=== PATIENT | female | born 1970 | race Caucasian/White ===

== ENCOUNTER 2018-03-16 12:07 | Emergency (ER) | payer OTHER, SELFPAY ==
[2018-03-16 12:08] VITALS: BP 185/118; PULSE 72; RESP 18; TEMP 36.6; O2SAT 100; BMI 28.8
[2018-03-16 12:23] VITALS: BP 194/108; PULSE 88; RESP 16; O2SAT 98
--- NOTE | 2018-03-16 12:30 | EKG12_ITS ---
Test Reason : HYPERTENSION Blood Pressure : / mmHG Vent. Rate : 067 BPM Atrial Rate : 067 BPM P-R Int : 140 ms QRS Dur : 078 ms QT Int : 430 ms P-R-T Axes : 063 058 039 degrees QTc Int : 454 ms Normal sinus rhythm Normal ECG Confirmed by NAGI MONTOYA, PATRICE ([id number]), supervising editor trailer AKIL CORONADO ([id number] on 03/21/2018 1:36:02 PM Referred By: RONY Confirmed By:PATRICE LAZAR MD
[2018-03-16] MEDS: Lisinopril 10 MG Tablet PO (12:47)
[2018-03-16 12:51] VITALS: BP 198/131; PULSE 71; RESP 16; O2SAT 100
[2018-03-16 13:02] LABS: Absolute Lymphocyte Count 1.19 X10^3/ul (0.83-4.51); Absolute Neutrophil Count 3.5 X10^3/uL (2.0-7.7); Basophil# 0.01 X10^3/uL; Basophil% 0.2 % (0-1); Eosinophil# 0.07 X10^3/uL; Eosinophils% 1.4 % (0-5); Hematocrit 34.9 % (37-47); Hemoglobin 11.1 g/dl (12.0-15.0); Lymphocyte # 1.19 X10^3/ul (4.0); Mean Corp Hgb Conc 31.8 g/gl (32-36); Mean Corpuscular Hgb 21.3 pg (27.0-32.0); Mean Platelet Vol. 10.3 fl (6.2-12.0); Monocyte# 0.45 X10^3/uL; Monocyte% 8.7 % (0-10); Neutrophil # 3.45 X10^3/uL (2.7-7.7); Neutrophil % 66.5 % (47-70); Platelet Count 233 K/mm3 (150-450); RBC Distribution Width SD 41.5 fl (35.1-43.9); Red Blood Count 5.21 M/mm3 (4.2-5.4); White Blood Count 5.2 K/mm3 (4.4-11.0)
[2018-03-16 13:03] LABS: POSITIVE COUNT NO; POSITIVE DIFFERENTIAL NO; POSITIVE MORPHOLOGY NO
[2018-03-16 13:16] LABS: Anion Gap 5 (5-15); BUN 12 mg/dL (7-18); BUN/Creat Ratio 15.7 RATIO (10-20); Calcium,Total 8.6 mg/dL (8.5-10.1); Chloride 109 mmol/L (98-107); Creatinine, Serum 0.76 mg/dL (0.55-1.02); EST Glomerular Filtration Rate 87 mL/min (>60); Est Glom Filt Rate - Afr Amer 105 mL/min (>60); Estimated Creatinine Clearance 79.87 ml/min; Glucose 90 mg/dL (74-106); Potassium 3.5 mmol/L (3.5-5.1); Sodium Level 140 mmol/L (136-145)
--- NOTE | 2018-03-16 14:09 | ED.VISSUMM ---
- ER Visit Summary Date of Service: 03/16/18 Chief Complaint: [Hypertension] History of Present Illness: The patient is a 47 F [presents the emergency department with elevated blood pressure. Patient was seeing her [employer] today due to a polyp in her uterus that has been causing some irregular bleeding and it was noted that her blood pressure was elevated during the visit. Patient states that she is not been taking her lisinopril for the last 2 weeks which she normally takes for her blood pressure. Patient states that she is also had some seasonal allergy type symptoms and she has been taking Claritin but does not like the way she feels when she takes the Claritin with the lisinopril. Patient also has been using some Tylenol Sinus [id number] medication. Patient denies chest pain or shortness of breath. Patient denies headaches.] Physical Examination: [HEENT-PERRLA, EOMI. Cranial nerves II through XII grossly intact. TMs clear. Mucous membranes moist. No adenopathy. Cardiovascular-regular rate and rhythm without murmur or ectopy Lungs-clear to auscultation, chest wall stable without crepitus or subcu emphysema Abdomen-normoactive bowel sounds, soft, nontender, no rebound or rigidity, no peritoneal signs. Extremities-intact ?4, normal range of motion, normal pulses, atraumatic] Test Results: [EKG obtained on arrival showed sinus rhythm with a rate of 67 bpm. CBC with differential was normal. Chemistries unremarkable. Troponin was less than 0.015.] Emergency Department Course and Treatment: Patient received lisinopril 10 mg p.o. and she was observed in the emergency department. Her blood pressure improved into the 150s over low 100s. [] Treatment Plan: [P the patient is asymptomatic at this point I recommended that she go back on her lisinopril and keep a journal of her blood pressures over the next week. Patient to follow-up with her primary care physician to determine if any further adjustments need to be made in her blood pressure medication.] Disposition: [Discharged home in stable condition] Impression: Hypertension [] This note was generated with [employer] software. It may contain incorrect words, spelling, and punctuation that were not noted in review of the chart prior to signing ED Disposition - Plan for ED Patient: Chief Complaint: Hypertension Referrals: Hank Escobar MD [Primary Care Provider] -
--- NOTE | 2018-03-16 14:11 | ED.DEP ---
ED Disposition - Plan for ED Patient: Chief Complaint: Hypertension Instructions: ED HTN Established Referrals: Hank Escobar MD [Primary Care Provider] - 5-7 Days
[2018-03-16 14:28] VITALS: BP 153/105; PULSE 74; RESP 16; O2SAT 98
--- NOTE | 2018-03-16 14:29 | ED.RN ---
REVIEWED D/C INSTRUCTIONS, FOLLOW UP CARE, AND S/S THAT WOULD WARRANT A RETURN TO THE ED WITH PT. PT VERBALIZED AN UNDERSTANDING AND DENIES FURTHER QUESTIONS FOR THIS RN. PT SKIN P/W/D, RESP EVEN AND UNLABORED, PT A&O X 3, NO DISTRESS NOTED. PT AMBULATED OUT OF ED, GAIT STEADY.
== END 2018-03-16 14:31 | disposition home or self-care (01) ==
LOC: ED 13:27
PROVIDERS: Emergency Provider Emergency Medicine; Family Provider Family Medicine; PCP Family Medicine
DX: I10 Essential (primary) hypertension (principal)
CPT/HCPCS: 80048; 84484; 85025; 93005; 99285; A4216

== ENCOUNTER 2018-04-11 09:53 | Day surgery (SDC) | payer OTHER, SELFPAY ==
--- NOTE | 2018-04-11 | EMB_PTH ---
PATIENT: JYOTI ALCANTAR LOC: [facility] – [place] U#:[id number] AGE/SX: 47/F ROOM: RE04/11/[address]: Dr. Sandhya Liriano MD : 1970 BED: DIS: 04/11/2018 SPEC #: [id number] RECD: 04/11/18 11:48 STATUS: SAHIL MARY #: [id number] CAROLYNE: 04/11/18 00:[address]: Sandhya Liriano DEPT: SURGICAL PATHOLOGY RECD BY: Lobito Meehan ENTERED: 04/13/18 11:48 SP TYPE: ENDOM BX/C NEAL DR: Dr. Hank Escobar MD Tissues: Endometrium, NOS Procedures: Surgery Specimen Level IV HEADER OPERATION: Hysteroscopy D & C, polypectomy, Mirena IUD PRE-OP DIAGNOSIS: TISSUE SUBMITTED: Endometrial curettings MICROSCOPIC DIAGNOSIS Endometrial curettings: Disordered proliferative endometrium. SJ:tito 6/8/18 MICROSCOPIC DESCRIPTION Slides are reviewed. GROSS DESCRIPTION Received in fixative is one container labeled with the patient's name and designated endometrial curettings. The specimen consists of multiple irregular fragments of pink-red soft tissue that in aggregate measure 5 x 3 x 0.3 cm. The specimen is totally submitted in two cassettes. / SJ:tito 04/11/18 TC:5 CPT: 06977
--- NOTE | 2018-04-11 09:53 | DT_ITS ---
This patient was seen during an EMR downtime April 10, 2018 - April 17, 2018. This patient may have a combination of paper and electronic documentation or all paper documentation. All documentation is viewable within the e-chart portion of [facility] for each patient visit.
[2018-04-13 18:44] LABS: Internal QC Validated? YES +Cl - CLEAR BKGD; Pregnancy, Urine Negative Negative
[2018-04-14 13:46] LABS: Hematocrit 30.1 % (37-47); Mean Corp Hgb Conc 29.9 g/gl (32-36); Mean Corpuscular Hgb 20.5 pg (27.0-32.0); Mean Corpuscular Volume 68.6 fL (81-99); Mean Platelet Vol. 10.2 fl (6.2-12.0); Platelet Count 258 K/mm3 (150-450); RBC Distribution Width CV 16.5 % (11.6-14.6); RBC Distribution Width SD 40.6 fl (35.1-43.9); Red Blood Count 4.39 M/mm3 (4.2-5.4); Scan Indicated on CBC? Y/N YES- FLAGS NOTED; White Blood Count 5.3 K/mm3 (4.4-11.0)
[2018-04-14 13:47] LABS: Differential Comment SCANNED
[2018-04-15 11:02] LABS: ALB/GLOB Ratio 0.9 RATIO (0.9-2.4); AST(SGOT) 20 U/L (15-37); Albumin, Serum 3.4 g/dL (3.2-5.0); BUN 15 mg/dL (7-18); BUN/Creat Ratio 17.6 RATIO (10-20); Calcium,Total 8.2 mg/dL (8.5-10.1); Creatinine, Serum 0.85 mg/dL (0.55-1.02); EST Glomerular Filtration Rate 77 mL/min (>60); Est Glom Filt Rate - Afr Amer 93 mL/min (>60); Globulin 3.6 g/dL (2.2-4.2); Glucose 92 mg/dL (74-106)
[2018-04-15 11:03] LABS: Alanine Aminotransfer ALT/SGPT 33 U/L (13-56); Alkaline Phosphatase 91 U/L (45-117); Anion Gap 6 (5-15); Chloride 108 mmol/L (98-107); Potassium 4.1 mmol/L (3.5-5.1); Sodium Level 141 mmol/L (136-145)
== END 2018-04-11 13:55 | disposition home or self-care (01) ==
LOC: SDC 04-12 17:09
PROVIDERS: Family Provider Family Medicine; PCP Family Medicine; Visit Provider Obstetrics & Gynecology
PROC: 0UDB8ZZ Extraction of Endometrium, Via Natural or Artificial Opening Endoscopic (ICD-10-PCS; CPT 58558; principal; 2018-04-11 11:15)
DX: N93.9 Abnormal uterine and vaginal bleeding, unspecified (principal); Z30.430 Encounter for insertion of intrauterine contraceptive device; I10 Essential (primary) hypertension; Z87.891 Personal history of nicotine dependence; Z79.899 Other long term (current) drug therapy
CPT/HCPCS: 58300; 58558; 80053; 81025; 85027; 86850; 86900; 88305; J7120; J2405

== ENCOUNTER → 2019-10-15 14:14 | Outpatient (CLI) | payer OTHER, SELFPAY ==
[2019-10-15 14:24] LABS: Bacteria 0 SEEN /hpf (None Seen); Mucous, Urine 0 SEEN /hpf (<or=2+); Red Blood Cells-Urine 0 SEEN /hpf (0-5); White Blood Cells 0 SEEN /hpf (0-5)
[2019-10-15 16:43] LABS: EXAGEN MAILED SPECIMEN
[2019-10-15 17:31] LABS: Absolute Lymphocyte Count 1.83 X10^3/uL (0.83-4.51); Absolute Neutrophil Count 4.3 X10^3/uL (2.0-7.7); Basophil# 0.02 X10^3/uL; Basophil% 0.3 % (0-1); Eosinophil# 0.26 X10^3/uL; Eosinophils% 3.7 % (0-5); Hematocrit 39.1 % (37-47); Hemoglobin 12.2 g/dL (12.0-15.0); Lymphocyte # 1.83 X10^3/ul (4.0); Lymphocyte % 26.3 % (19-41); Mean Corp Hgb Conc 31.2 g/dL (32-36); Mean Corpuscular Hgb 23.3 pg (27.0-32.0); Mean Corpuscular Volume 74.8 fL (81-99); Mean Platelet Vol. 11.6 fl (6.2-12.0); Monocyte# 0.53 X10^3/uL; Monocyte% 7.6 % (0-10); NRBC Flagged by Analyzer 0 % (0-5); Neutrophil # 4.32 X10^3/uL (2.7-7.7); Platelet Count 236 K/mm3 (150-450); RBC Distribution Width CV 14.6 % (11.6-14.6); RBC Distribution Width SD 38.6 fl (35.1-43.9); Red Blood Count 5.23 M/mm3 (4.2-5.4)
[2019-10-15 17:48] LABS: Color, Urine Yellow (Yellow); Glucose, Dipstick Normal (Normal); Ketone-Dipstick Negative (Negative); Leukocyte Esterase-Dipstick Negative /ul (Negative); Nitrite-Dipstick Negative (Negative); Occult Blood-Urine Negative /ul (Negative); Protein-Dipstick Negative (Negative); Urine Bilirubin Dipstick Negative (Negative); Urine Clarity Clear (Clear); Urine Urobilinogen Normal (Normal)
[2019-10-15 18:07] LABS: Erythrocyte Sedimentation Rate 13 mm/hr (0-20)
[2019-10-15 18:15] LABS: Protein, Urine (Random) 8.9 mg/dL (<11.9); Protein:Creat Ratio 233 mg/g CRE (0-200)
[2019-10-15 18:41] LABS: Squamous Epithelial Cells - UA 0-5 SEEN /hpf (5-10)
[2019-10-15 18:50] LABS: AST(SGOT) 23 U/L (15-37); Alanine Aminotransfer ALT/SGPT 40 U/L (13-56); Albumin, Serum 3.6 g/dL (3.2-5.0); Alkaline Phosphatase 106 U/L (45-117); Anion Gap 7 (5-15); BUN 16 mg/dL (7-18); BUN/Creat Ratio 20.5 RATIO (10-20); CRP < 2.90 mg/L (0.0-3.0); Calcium,Total 8.6 mg/dL (8.5-10.1); Chloride 108 mmol/L (98-107); Creatinine, Serum 0.78 mg/dL (0.55-1.02); EST Glomerular Filtration Rate 84 mL/min (>60); Est Glom Filt Rate - Afr Amer 101 mL/min (>60); Globulin 3.7 g/dL (2.2-4.2); Glucose 84 mg/dL (74-106); Potassium 3.8 mmol/L (3.5-5.1); Protein, Total 7.3 g/dL (6.4-8.2); Sodium Level 139 mmol/L (136-145)
[2019-10-16 08:55] LABS: Hepatitis B Surface Antibody Non-Reactive; Hepatitis B Surface Antigen Non-Reactive (Nonreactive); Hepatitis C Antibody Non-Reactive (Nonreactive)
[2019-10-22 20:08] LABS: HLA B27 Positive (.); Hepatitis B Core AB IgM Negative (Negative)
== END ==
PROVIDERS: Family Provider Family Medicine; PCP Family Medicine; Referring Provider Internal Medicine Rheumatology; Visit Provider Internal Medicine Rheumatology
DX: M06.4 Inflammatory polyarthropathy (principal); M35.00 Sjogren syndrome, unspecified; M21.40 Flat foot [pes planus] (acquired), unspecified foot; R76.8 Other specified abnormal immunological findings in serum
CPT/HCPCS: 36415; 80053; 81001; 81374; 82570; 84156; 85025; 85652; 86140; 86705; 86706; 86803; 87340